=== PATIENT | male | born 1960 | race Two or more races ===

== ENCOUNTER 2020-07-02 19:25 | Inpatient (IN) | payer BC, OTHER ==
[~2020-07-02] VITALS: Ht 177.8 cm; Wt 93.0 kg
[2020-07-02] MEDS ORDERED: MORPHINE SULFATE 4 MG/ML SYR/VIAL IV ONE (21:00)
[2020-07-02] MEDS ORDERED: ONDANSETRON HCL 4 MG/2 ML VIAL IV ONE (21:00)
[2020-07-02 21:32] LABS: Basophils # (auto) 0.1 10 ^3/uL (0-0.2); Basophils % (auto) 1.2 % (0.0-2.0); Eosinophils # (auto) 0.2 10 ^3/uL (0-0.8); Eosinophils % (auto) 3.9 % (0.0-7.0); Hematocrit 39.6 % (41.0-53.0); Hemoglobin 13.6 g/dL (13.5-17.5); Lymphocytes # (auto) 2.4 10 ^3/uL (0.4-5.4); Lymphocytes % (auto) 37.3 % (10.0-50.0); Mean Corpuscular Hemoglobin 30.1 pg (28.0-32.0); Mean Corpuscular Hgb Conc. 34.3 g/dL (32.0-36.0); Mean Corpuscular Volume 87.7 fL (80.0-100.0); Monocytes # (auto) 0.5 10 ^3/uL (0-1.3); Monocytes % (auto) 8.3 % (0.0-12.0); Neutrophils # (auto) 3.2 10 ^3/uL (1.6-8.6); Neutrophils % (auto) 49.3 % (37.0-80.0); Nucleated Red Blood Cells % 0.1 %; Platelet Count (auto) 239 10^3/uL (140-450); Red Blood Cells 4.52 10^6/uL (4.5-5.90); Red Cell Distribution Width 13.9 % (11.8-14.3); White Blood Cell 6.4 10^3/uL (4.4-10.8)
[2020-07-02 21:34] LABS: Albumin 3.3 g/dL (3.4-5.0); Calcium 7.9 mg/dL (8.5-10.1); Potassium 3.7 mmol/L (3.5-5.1)
[2020-07-02 21:40] LABS: Bilirubin, Total 0.4 mg/dL (0.2-1.0); Total Protein 6.7 g/dL (6.4-8.2)
[2020-07-02] MEDS ORDERED: cloNIDine HCL 0.1 MG TAB PO PRN (22:45)
[2020-07-02] MEDS ORDERED: HYDROcodone-ACET 5/325MG TAB PO PRN (22:45)
[2020-07-02] MEDS ORDERED: ONDANSETRON HCL 4 MG/2 ML VIAL IV PRN (22:45)
[2020-07-02] MEDS ORDERED: TEMAZEPAM 15 MG CAP PO PRN (22:45)
[2020-07-02] MEDS ORDERED: ACETAMINOPHEN 325 MG TAB PO PRN (22:45)
[2020-07-02] MEDS ORDERED: DEXTROSE (50%) 50ML SYRG IV PRN (22:45)
[2020-07-03] VITALS (7 sets, daily range): BP systolic 126–162; BP diastolic 73–97
[2020-07-03] MEDS ORDERED: PNEUMOCOCCAL VACC POLYS 25 MCG/0.5 ML VIAL IM ONE (01:30)
[2020-07-03] MEDS ORDERED: SITA100T7 PO (01:37)
[2020-07-03] MEDS ORDERED: ATOR-47 PO (01:37)
[2020-07-03] MEDS ORDERED: OMEP20TA PO (01:37)
[2020-07-03] MEDS ORDERED: PIOG1TAB37 OR (01:37)
[2020-07-03] MEDS ORDERED: DICY10CA12 PO (01:37)
[2020-07-03] MEDS ORDERED: ASPI-543 PO (01:37)
[2020-07-03] MEDS ORDERED: INSU1.2I SC (01:37)
[2020-07-03] MEDS ORDERED: INSU100I4 SC (01:37)
[2020-07-03] MEDS ORDERED: HYDR12.56 PO (01:37)
[2020-07-03 05:06] LABS: Urine Bacteria NONE SEEN /hpf (None Seen); Urine Blood Negative /uL (Negative); Urine WBC 1 /hpf (0 - 3)
[2020-07-03 06:01] LABS: Basophils # (auto) 0.1 10 ^3/uL (0-0.2); Basophils % (auto) 1.3 % (0.0-2.0); Eosinophils # (auto) 0.3 10 ^3/uL (0-0.8); Eosinophils % (auto) 5.6 % (0.0-7.0); Hematocrit 40.3 % (41.0-53.0); Lymphocytes % (auto) 35.5 % (10.0-50.0); Mean Corpuscular Hemoglobin 30.3 pg (28.0-32.0); Mean Corpuscular Hgb Conc. 34.6 g/dL (32.0-36.0); Mean Corpuscular Volume 87.4 fL (80.0-100.0); Monocytes # (auto) 0.6 10 ^3/uL (0-1.3); Monocytes % (auto) 10.9 % (0.0-12.0); Neutrophils # (auto) 2.7 10 ^3/uL (1.6-8.6); Neutrophils % (auto) 46.7 % (37.0-80.0); Nucleated Red Blood Cells % 0.1 %; Platelet Count (auto) 246 10^3/uL (140-450); Red Blood Cells 4.62 10^6/uL (4.5-5.90); Red Cell Distribution Width 13.8 % (11.8-14.3); White Blood Cell 5.8 10^3/uL (4.4-10.8)
[2020-07-03 06:23] LABS: Potassium 3.9 mmol/L (3.5-5.1)
[2020-07-03 06:29] LABS: Albumin 3.5 g/dL (3.4-5.0); BUN/Creatinine Ratio 18.2; Bilirubin, Total 0.5 mg/dL (0.2-1.0); Calcium 8.3 mg/dL (8.5-10.1); Total Protein 6.8 g/dL (6.4-8.2)
[2020-07-03] MEDS: ACCU-CHEK COMFORT CURVE STRIP VI SCH ×4 (06:37→21:09)
[2020-07-03] MEDS: InsuLIN REG 1unit/0.01ml Soln (100units/ml) SC SCH ×4 (06:42→21:10)
[2020-07-03] MEDS: HCTZ 25 MG TAB PO SCH (09:59)
[2020-07-03] MEDS: LISINOPRIL 20 MG TAB PO SCH (09:59)
[2020-07-03] MEDS: PANTOPRAZOLE 40 MG TAB PO SCH (09:59)
[2020-07-03] MEDS: MORPHINE SULF INJ 2 MG/ML SYRINGE 1ML IV PRN (16:41)
[2020-07-03] MEDS: ATORVASTATIN 20 MG TAB PO SCH (21:12)
[2020-07-04 06:25] LABS: Albumin 3.6 g/dL (3.4-5.0); Calcium 8.8 mg/dL (8.5-10.1); Potassium 4.2 mmol/L (3.5-5.1)
[2020-07-04] MEDS: ACCU-CHEK COMFORT CURVE STRIP VI SCH ×4 (06:27→21:46)
[2020-07-04] MEDS: InsuLIN REG 1unit/0.01ml Soln (100units/ml) SC SCH ×4 (06:28→21:58)
[2020-07-04 06:30] LABS: BUN/Creatinine Ratio 17.4; Bilirubin, Total 0.6 mg/dL (0.2-1.0)
[2020-07-04 08:00] VITALS: BP 129/77
[2020-07-04 09:00] VITALS: BP 147/88
[2020-07-04] MEDS: HCTZ 25 MG TAB PO SCH (09:10)
[2020-07-04] MEDS: LISINOPRIL 20 MG TAB PO SCH (09:10)
[2020-07-04] MEDS: PANTOPRAZOLE 40 MG TAB PO SCH (09:10)
[2020-07-04] MEDS: MORPHINE SULF INJ 2 MG/ML SYRINGE 1ML IV PRN ×2 (09:14→17:27)
[2020-07-04 13:00] VITALS: BP 156/74
[2020-07-04] MEDS: SODIUM CHLORIDE 0.9% 1,000 ML IV SCH (18:11)
[2020-07-04] MEDS: ATORVASTATIN 20 MG TAB PO SCH (21:46)
[2020-07-04 22:00] VITALS: BP 129/69
[2020-07-05 05:00] VITALS: BP 126/74
[2020-07-05] MEDS: ACCU-CHEK COMFORT CURVE STRIP VI SCH ×3 (06:45→16:56)
[2020-07-05] MEDS: InsuLIN REG 1unit/0.01ml Soln (100units/ml) SC SCH ×3 (06:49→17:04)
[2020-07-05] MEDS: SODIUM CHLORIDE 0.9% 1,000 ML IV SCH (07:10)
[2020-07-05 07:28] LABS: INR 1.07 (0.9-1.15); Partial Thromboplastin Time 25.8 sec (23.0-31.2)
[2020-07-05 08:00] VITALS: BP 155/89
[2020-07-05 08:56] VITALS: BP 155/89
[2020-07-05] MEDS: LISINOPRIL 20 MG TAB PO SCH (09:46)
[2020-07-05] MEDS: HCTZ 25 MG TAB PO SCH (09:46)
[2020-07-05] MEDS: PANTOPRAZOLE 40 MG TAB PO SCH (09:46)
[2020-07-05] MEDS ORDERED: SODIUM CHLORIDE LOCK 10 ML ONE (11:48)
[2020-07-05] MEDS ORDERED: LIDOCAINE VISCOUS 2% 15ML UD ONE (11:49)
[2020-07-05] MEDS ORDERED: MIDAZOLAM HCL 5 MG/ML-1ML VIAL ONE (11:49)
[2020-07-05] MEDS ORDERED: diphenhdrAMINE HCL 50 MG/1 ML VL ONE (11:49)
[2020-07-05] MEDS ORDERED: fentaNYL CITRATE 100 MCG/2 ML VL ONE (11:49)
[2020-07-05 12:57] VITALS: BP 146/92
[2020-07-05] MEDS ORDERED: PANT40T PO (14:03)
[2020-07-05 14:39] VITALS: BP 146/92
[2020-07-05 17:00] VITALS: BP 161/94
== END 2020-07-05 18:21 | disposition home or self-care (01) | DRG 392 ==
LOC: ER 19:28 → OVERFLOW 19:29 → WEST WING 23:34
PROVIDERS: ADMIT Nurse Practitioner; ATTEND Internal Medicine Nephrology
PROC: 0DB68ZX Excision of Stomach, Via Natural or Artificial Opening Endoscopic, Diagnostic (ICD-10-PCS; 2020-07-05)
PROC: 0DBA8ZX Excision of Jejunum, Via Natural or Artificial Opening Endoscopic, Diagnostic (ICD-10-PCS; 2020-07-05)
PROC: 0DB98ZX Excision of Duodenum, Via Natural or Artificial Opening Endoscopic, Diagnostic (ICD-10-PCS; principal; 2020-07-05 12:50)
DX: R10.9 Unspecified abdominal pain (principal); Z20.822 Contact with and (suspected) exposure to COVID-19; E11.22 Type 2 diabetes mellitus with diabetic chronic kidney disease; E78.5 Hyperlipidemia, unspecified; G89.29 Other chronic pain; I12.9 Hypertensive chronic kidney disease with stage 1 through stage 4 chronic kidney disease, or unspecified chronic kidney disease; K22.70 Barrett's esophagus without dysplasia; K29.70 Gastritis, unspecified, without bleeding; K44.9 Diaphragmatic hernia without obstruction or gangrene; N40.0 Benign prostatic hyperplasia without lower urinary tract symptoms; Z66 Do not resuscitate; N18.30 Chronic kidney disease, stage 3 unspecified; K80.20 Calculus of gallbladder without cholecystitis without obstruction; N28.1 Cyst of kidney, acquired; Z80.42 Family history of malignant neoplasm of prostate; Z83.3 Family history of diabetes mellitus; K57.30 Diverticulosis of large intestine without perforation or abscess without bleeding
CPT/HCPCS: 36415; 71045; 72195; 74176; 74181; 76705; 80053; 81001; 82962; 83690; 84154; 85025; 85610; 85730; 87426; G0378; J1815; J2250; J2405

== ENCOUNTER → 2020-08-08 | Outpatient (CLI) | payer BC ==
[~2020-08-08] MED LIST: ASPI-543 PO; ATOR-47 PO; DICY10CA12 PO; HYDR12.56 PO; INSU1.2I SC; INSU100I4 SC; OMEP20TA PO; PANT40T PO; PIOG1TAB37 OR; SITA100T7 PO
== END | disposition home or self-care (01) ==
LOC: LAB 08:40
PROVIDERS: ATTEND Internal Medicine Gastroenterology
DX: R10.9 Unspecified abdominal pain (principal)
CPT/HCPCS: 82784; 83516; 86255